=== PATIENT | male | born 1975 | race Two or more races ===

== ENCOUNTER 2020-09-05 11:06 | Emergency (ER) | payer OTHER, SELFPAY ==
[2020-09-05 11:14] VITALS: BP 126/76; PULSE 72; RESP 15; TEMP 36.6; O2SAT 99; BMI 26.6
--- NOTE | 2020-09-05 11:24 | ED.EXTPRO ---
HPI - Extremity Problem General Chief complaint: Extremity Injury, Upper Stated complaint: work related hand injury Time Seen by Provider: 09/05/20 11:15 Source: patient Mode of arrival: ambulatory Limitations: no limitations History of Present Illness HPI Narrative: 45 y/o male presenting with left hand laceration after he scraped it on metal while moving a large metal rack while at work. Bleeding is controlled on arrival. He has full function of all of his fingers. He states he has pain at the laceration site but no radiation of the pain. He is not sure when his last tetanus shot was. He did not clean the wound prior to arrival. MD Complaint: extremity pain Onset (ago): minute(s) Pain Consistency: constant Location: left Severity scale (1-10): 3 Quality: stabbing and aching Radiation: none Relieving factors: nothing Exacerbating factors: palpation Associated symptoms: denies other symptoms Related Data Previous Rx's Medication Instructions Recorded cephalexin [Keflex] 500 mg PO QID 7 Days #28 cap 09/05/20 Allergies Allergy/AdvReac Type Severity Reaction Status Date / Time No Known Allergies Allergy Mild NONE Unverified 07/20/20 15:24 Review of Systems Review of Systems: Constitutional: No Fever, No Chills Eyes: No Eye Pain, No Swelling, No Redness Cardiovascular: No Chest Pain, No SOB Respiratory: No Cough, No Sputum Gastrointestinal: No Nausea, No Vomiting Genitourinary: No Dysuria, No Urinary Frequency, No Hematuria Musculoskeletal: + joint pain, No Myalgias Skin: +Skin Lesions, No rash Neuro: No Weakness, No Numbness, No Dizziness, No Headache Psych: No Anxiety/Panic, No Depression PMFSH Past Medical History Attestation statement: The following information was validated with the patient. Medical History No known health problems No known health problems Social History Social History Advance Directives: No Advance Directives Information Provided: No Physical Exam Vital Signs: Vital Signs: Vital Signs Temp Pulse Resp BP Pulse Ox 09/05/20 11:14 97.8 F 72 15 126/76 99 Body Mass Index 26.6 Appearance: Alert. Oriented X3. No acute distress. HEENT: normal inspection Respiratory: No respiratory distress. Skin: Skin warm and dry. Normal skin color. Normal skin turgor. No rashes. Extremities: dorsal left hand with avulsion 2cm x 2cm, jagged edges, no active bleeding. NV intact. all tendon function is normal. strength normal. Neuro: Oriented X 3. No motor deficit. No sensory deficit. Course Course Course Narrative: wound cleaned extensively. no tendon involvement. full function. wound repaired, see lac note. Procedures Laceration Laceration 1: Site: hand Side (If applicable): left Size (cm): 2.5 Description: flap Depth: simple, single layer Local Anesthetic: lidocaine 2% Amount of anesthesia used (mL): 3 Pre-repair: wound explored, irrigated extensively, deep structures intact and wound margins revised Skin layer closed with: nylon Size (cm): 4-0 Number of sutures: 5 Technique: simple, interrupted MDM - Extremity (Nontraumatic) MDM Narrative Medical decision making narrative: left hand laceration without tendon involvement. full function and NV intact. low suspicion for fracture given mechanism and exam Critical Care Time Critical Care Time Critical Care Time: No Discharge Plan Discharge Clinical Impression: Laceration Patient Disposition: Home, Self-Care Instructions: Laceration (ED) Additional Instructions: Limit use of your left hand. Keep area clean and dry. Do not get wet for the 1st 24 hours. After that you can briefly clean with soap and water and then cover. Use bacitracin or triple antibiotic ointment two times per day. Leave area open to air at night when sleeping. If you have increased pain, swelling, redness or loss of function of your fingers call 911 or come back to the ER for evaluation. Prescriptions: New cephalexin [Keflex] 500 mg capsule 500 mg PO QID 7 Days Qty: 28 RF: 0 Referrals: [facility] [Provider Group] - 2 days Stand Alone Forms: Work/School Release Interventions: ED Discharge Assessment Last Done: 09/05/20 11:56 Discharge Date/Time: 09/05/20 12:02
[2020-09-05] MEDS: Lidocaine HCl 2 % MPF 5 ML VIAL SUBCUT (11:39)
--- NOTE | 2020-09-05 11:48 | PC.NURSE ---
SHANEKA JOYA AT BEDSIDE TO ASSESS, CLEANSE, SUTURE, APPLIED BACITRACIN OINTMENT, TELFA/GAUZE WRAP
== END 2020-09-05 12:02 | disposition home or self-care (01) ==
PROVIDERS: Emergency Provider Emergency Medicine; PCP Internal Medicine
DX: S61.412A Laceration without foreign body of left hand, initial encounter (principal); S60.512A Abrasion of left hand, initial encounter; M79.642 Pain in left hand; W26.9XXA Contact with unspecified sharp object(s), initial encounter; Y93.9 Activity, unspecified; Y92.9 Unspecified place or not applicable; Y99.0 Civilian activity done for income or pay; Z23 Encounter for immunization
CPT/HCPCS: 12001; 90471; 90715; 99283; 99284

== ENCOUNTER 2020-09-18 08:34 | Emergency (ER) | payer OTHER, SELFPAY ==
[2020-09-18 09:11] VITALS: BP 112/74; PULSE 67; RESP 16; TEMP 36.4; O2SAT 98; BMI 26.6
--- NOTE | 2020-09-18 09:31 | ED.WOUNDLAC ---
HPI - Wound/Laceration General Chief Complaint: Wound/Laceration Stated Complaint: suture removal Time Seen by Provider: 09/18/20 09:30 History of Present Illness HPI narrative: Patient is here for suture removal from left hand injury at work 2 weeks ago, his hand was hit by a heavy object at work, he complains that it still hurts to use the hand and there is still some swelling and black and blue in the hand He has no numbness or weakness he has had no redness or discharge from the wound no fever Pain is mild Related Data Previous Rx's Medication Instructions Recorded cephalexin [Keflex] 500 mg PO QID 7 Days #28 cap 09/05/20 Allergies Allergy/AdvReac Type Severity Reaction Status Date / Time No Known Allergies Allergy Mild NONE Unverified 07/20/20 15:24 Review of Systems Review of Systems: No fever no chills no neck pain no numbness no weakness no paresthesias no skin rash Yes all other systems are reviewed and are negative PMFSH Past Medical History Source: nursing notes reviewed Medical History No known health problems No known health problems Social History Social History Advance Directives: No Advance Directives Information Provided: Yes Physical Exam Vital Signs: Vital Signs: Last Vital Signs Temp 97.6 F 09/18/20 09:11 Pulse 67 09/18/20 09:11 Resp 16 09/18/20 09:11 BP 112/74 09/18/20 09:11 Pulse Ox 98 09/18/20 09:11 Body Mass Index 26.6 Patient is A&O x3, comfortable appearing, no acute distress Neck is supple Respiratory no acute distress Extremities full range of motion x4 The left hand has sutures in place on the dorsum of the hand there is mild dorsal swelling but no surrounding erythema no fluctuance no discharge, no significant tenderness, there is some mild ecchymosis, there is full range of motion but there is discomfort when he makes a fist, wrist has full range of motion without tenderness or swelling, all tendon function is normal, neurovascular is intact Course Course Course Narrative: Sutures in left hand were removed without complication As patient has continued pain with use of the hand and some swelling he is advised to follow with [facility] for further evaluation, there is no infection now there is no tendon impairment, no evidence of fracture Discharge Plan Discharge Clinical Impression: Encounter for removal of sutures Patient Disposition: Home, Self-Care Additional Instructions: Stitches were removed, there is no sign of infection now but there is still swelling and pain with use of the hand so follow with [facility] for work related injury for further evaluation Return any time if worse Prescriptions: No Action cephalexin [Keflex] 500 mg capsule 500 mg PO QID 7 Days Qty: 28 RF: 0 Referrals: [facility] [Provider Group] - 2 days (Continuing left hand pain and swelling after work injury 12 days ago) Burak Kaufman MD [Physician] - 2 days (Left hand work injury with continued pain and swelling for 2 weeks) Stand Alone Forms: Work/School Release Interventions: ED Discharge Assessment Last Done: 09/18/20 09:42 Discharge Date/Time: 09/18/20 09:40
== END 2020-09-18 09:40 | disposition home or self-care (01) ==
PROVIDERS: Emergency Provider Emergency Medicine; PCP Internal Medicine
DX: Z48.02 Encounter for removal of sutures (principal); Z79.899 Other long term (current) drug therapy
CPT/HCPCS: 99283

== ENCOUNTER 2021-04-06 07:46 | Outpatient (REF) | payer OTHER, SELFPAY ==
[2021-04-06 08:03] LABS: COVID-19 Test Negative (Negative); IDNOW Serial# 55D5AD1C
== END 2021-04-06 07:47 | disposition home or self-care (01) ==
LOC: HO.LAB 07:46
PROVIDERS: Visit Provider Internal Medicine
DX: Z20.822 Contact with and (suspected) exposure to COVID-19 (principal)
CPT/HCPCS: 36415; 87635; C9803

== ENCOUNTER 2021-11-06 12:08 | Outpatient (REF) | payer OTHER, SELFPAY ==
[2021-11-06 15:47] LABS: Binax Internal Control QC Valid; Binax Lot number: 9864; Binax Now Covid-19 Ag Positive (Negative)
== END 2021-11-06 12:09 | disposition home or self-care (01) ==
LOC: HO.LAB 12:08
PROVIDERS: Visit Provider Internal Medicine
DX: Z20.822 Contact with and (suspected) exposure to COVID-19 (principal)
CPT/HCPCS: 36415

== ENCOUNTER 2024-09-22 17:38 | Emergency (ER) | payer OTHER, SELFPAY ==
--- NOTE | ~2024-09-22 | CT_ITS ---
EXAMINATION: CT HEAD WITHOUT CONTRAST CLINICAL INFORMATION: Head injury at work. Question bleed. COMPARISON: None available. TECHNIQUE: Contiguous axial imaging was performed from the skull base to vertex without intravenous administration of contrast. This CT examination was performed using dose optimization techniques as appropriate, variously including the following: *Automated exposure control *Adjustment of mA and/or kV according to patient size (this includes techniques or standardized protocols for targeted exams where dose is matched to indication/reason for exam; i.e. extremities or head) *Use of iterative reconstruction technique DLP: 1232 mGy-cm FINDINGS: There is no acute intracranial hemorrhage. There is no evidence of acute/subacute cerebral or cerebellar infarction. There is no midline shift. No mass effect. No extra-axial fluid collection. The ventricles are normal in size. The orbits are symmetric and within normal limits. There is scattered ethmoid air cell mucosal thickening. There is apparent deformity of the lateral wall of the left maxillary sinus. The left maxillary sinus is clear. This deformity is likely chronic. There is chronic appearing deformity of the left zygomatic arch. The mastoid air cells are well-aerated. CT/CT head/brain wo IV con IMPRESSION: No acute intracranial hemorrhage. 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 Electronically signed by: Adam Saleem DO 09/22/2024 09:43 PM EST
--- NOTE | ~2024-09-22 | CT_ITS ---
EXAMINATION: CT SOFT TISSUE NECK WITHOUT CONTRAST CLINICAL INFORMATION: Left supraclavicular mass,? Neoplasm COMPARISON: None available. TECHNIQUE: Helical imaging was performed in the axial plane with generation of coronal and sagittal reformatted images. This CT examination was performed using dose optimization techniques as appropriate, variously including the following: *Automated exposure control *Adjustment of mA and/or kV according to patient size (this includes techniques or standardized protocols for targeted exams where dose is matched to indication/reason for exam; i.e. extremities or head) *Use of iterative reconstruction technique DLP: 485.67 mGy-cm FINDINGS: No abnormally enlarged neck lymph node or mass. The nasopharynx, oropharynx, hypopharynx, and laryngeal structures are unremarkable. The parotid, submandibular, and thyroid glands are unremarkable. The visualized orbits are unremarkable. The paranasal sinuses and mastoid air cells are clear. The imaged portions of the brain are unremarkable. No acute osseous abnormality. No lytic or blastic osseous lesions. The imaged lungs are clear. CT/CT soft tissue neck wo IV con IMPRESSION: Normal CT neck soft tissue. Electronically signed by: Xuan Leonard MD 09/22/2024 08:58 PM [facility]
[2024-09-22 17:56] VITALS: BP 138/80; PULSE 76; RESP 19; TEMP 36.6; O2SAT 98; BMI 27.6
--- NOTE | 2024-09-22 17:57 | ED_ITS ---
HPI - General Adult General Chief complaint: Wound/Laceration Stated complaint: head inj work related, lump on left shoulder Time Seen by Provider: 09/22/24 18:36 Source: patient Mode of arrival: ambulatory Limitations: no limitations History of Present Illness ED Provider: DR. Vincent HPI narrative: a 49-year-old male came to the emergency department for 2 different reasons. 1. Sustained a head injury while he was at work, patient was bending down when he stood up he had his head in a metal gate causing superficial laceration to the frontal scalp, no LOC, patient is complaining of slight headache, no blood thinner, no nausea, no vomiting. 2. Patient also noted left supraclavicular soft tissue mass for 1 year noticed that he can not raise his left arm all the way above his head because of the mass. Related Data Previous Rx's ?Medication ?Instructions ?Recorded cephalexin 500 mg capsule (Keflex) 500 mg PO QID 7 days #28 caps 09/05/20 Allergies Allergy/AdvReac Type Severity Reaction Status Date / Time No Known Allergies Allergy Mild NONE Verified 09/22/24 18:00 Review of Systems Review of Systems: all other systems are reviewed and are negative Constitutional: Reports as per HPI and Reports no additional constitutional complaints Eyes: Reports as per HPI and Reports no additional eye complaints Reports system reviewed and no additional complaints, except as documented Cardiovascular: Reports as per HPI and Reports no additional cardiovascular complaints Respiratory: Reports as per HPI and Reports no additional respiratory complaints Gastrointestinal: Reports as per HPI and Reports no additional gastrointestinal complaints Genitourinary: Reports no additional female genitourinary complaints Musculoskeletal: Reports no additional musculoskeletal complaints Skin/Breast: Reports system reviewed and no additional complaints, except as docu Psychiatric: Reports no additional psychiatric complaints Endocrine: Reports no additional endocrine complaints Hematologic/Lymphatic: Reports no additional hematologic/lymphatic complaints Allergic/Immunologic: Reports no additional allergic/immunologic complaints Reports system reviewed and no additional complaints, except as documented and Reports Abnormal speech present [facility] Past Medical History Medical History No known health problems No known health problems Social History Social History Alcohol intake: current Alcohol intake frequency: holidays/special occasions only Smoked in Last 30 Days: No Use of substances other than those prescribed or required for medical reasons: No Advance Directives: No Advance Directives Information Provided: Yes Do you have a plan to hurt others: No Plan Physical Exam ED Vital Signs: Vital Signs - 24 hr 09/22/24 17:56 09/22/24 22:02 Temperature 98 F 97.9 F Pulse Rate 76 69 Respiratory Rate 19 18 Blood Pressure 138/80 112/72 Pulse Oximetry 98 99 Oxygen Delivery Method Room Air Room Air BMI result Body Mass Index 27.6 Vital signs have been reviewed and appear to be correct. Blood pressure elevated. Heart rate normal. Respiratory rate normal. Temperature normal. Oxygen saturation normal. Appearance: Alert. Oriented X3. No acute distress. Head: Normal external exam. Normocephalic. superficial frontal scalp laceration with dry blood, no active bleeding. No Ham signs noted. No raccoon eyes noted Eyes: PERRLA. EOMI. Conjunctiva and sclera normal. Eyelids normal. ENT: TM's Normal. Pharynx normal. Uvula midline. Moist mucous membranes. No trismus noted. No drooling noted. No muffled voice noted. Neck: Normal inspection. Neck supple. FROM. No adenopathy. Thyroid Normal. No meningeal signs. No neck mass noted. CVS: Normal heart rate and rhythm. Heart sound normal. No murmurs noted. Pulses normal throughout. Respiratory: No respiratory distress. Painless inspiration. Breath sounds normal. No wheezes/rales/rhonchi noted. Chest nontender. No accessory muscle usage noted or decreased air movement noted. Abdomen: Soft and nontender. Bowel sounds normal in all 4 quadrants. No distention noted. No organomegaly noted. No visible injury noted. Back: No CVA tenderness. Full range of motion noted. Skin: Skin warm and dry. Normal skin color. Normal skin turgor. No rashes /lesions/lacerations noted. Extremities: No lower extremity edema. Extremities exhibit normal range of motion. Extremities nontender. Neuro: Oriented X 3. Cranial nerve exam: II-XII are grossly intact No motor deficit. No sensory deficit. Reflexes normal. Course Course Course Narrative: This is a rapid medical exam performed by Amalia Thurston NP: Additional HPI, ROS, PE not included below will be deferred to primary provider. Patient is a 49-year-old male presenting to the ED with complaint of head injury sustained at work. States he was leaning down to look at something, when he stood up, he hit his head on a gate. He denies LOC, is not anticoagulated. Went to urgent care but was referred to the ED. Complains of headache. Last Tdap was 3 years ago here he believes. Dried blood over laceration, difficult to determine severity in triage, will need additional evaluation. Reevaluation(s) Reevaluation #1: signed out to Dr. Liriano's to follow-up on CT head, CT soft tissue neck for on growing left supraclavicular soft tissue evaluation. Patient has a normal neuro exam, with GCS of 15. Time: 20:57 Reevaluation #2: I assumed care of of this patient from my colleague, Dr. Vincent at 21:[address] hours[address] Patient had a CT scan of the head to evaluate head trauma which revealed no acute fracture bleed. He has a left supraclavicular mass which is gotten larger over the past year in his restricting the range of motion of his left shoulder. On my evaluation patient's mass is soft and well demarcated and I suspect that may be a lipoma. CT scan of the chest did not reveal any significant abnormalities. I will refer the patient to our on-call surgeon Dr. Raya for evaluation of this mass. Patient was given ibuprofen 400 mg orally for his head pain. Patient states that he can return to work and does not think that he will have any limitations in his job performance. Patient was discharged home with printed and verbal instructions. Time: 22:23 Medications Administered Discontinued Medications Generic Name Dose Route Start Last Admin Trade Name Freq PRN Reason Stop Dose Admin Diphtheria/Tetanus/Acell Pertussis 0.5 ml 09/22/24 19:06 09/22/24 19:25 Diphth,Pertus(Acell),Tet Adult 0.5 Ml Syringe IM 09/22/24 19:07 0.5 ml .ONCE ONE Administration Medical Decision Making Differential Diagnosis Differential Diagnoses: The differential diagnosis associated with the presentation includes ( intracranial bleed, brain concussion, left supraclavicular soft tissue mass) Admission/Observation Consideration of admission/observation: Escalation of care including admission/observation considered Radiology Impression Discussion of test interpretation with radiology: I have reviewed the radiologist's reading. Radiologist Impression: CT head/brain wo IV con IMPRESSION: No acute intracranial hemorrhage. 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 Electronically signed by: Adam Saleem DO 09/22/2024 09:43 PM EST RP Dictated By: Adam Saleem Jr, DO CT soft tissue neck wo IV con IMPRESSION: Normal CT neck soft tissue. Electronically signed by: Xuan Leonard MD 09/22/2024 08:58 PM EST RP Dictated By: Xuan Leonard MD Discharge Plan Discharge Clinical Impression: Closed head injury, Supraclavicular mass Patient Disposition: Home, Self-Care Instructions: Head Injury (ED) Additional Instructions: The CT scan of your head revealed no skull fracture or bleeding in the brain which is reassuring. The CT scan of your chest did not reveal any significant abnormalities which is also reassuring. At this time, I believe that the mass above your collar bone is probably lipoma however I want you to follow-up with our on-call surgeon, Dr. Raya for evaluation. Call his office tomorrow to make an appointment within the next 1-2 weeks. Take ibuprofen 200 mg pills, 2 pills every 6 hours as needed for pain or fever. Take Tylenol (acetaminophen) 500 mg pills, 2 pills every 6 hours as needed for pain or fever. Follow-up with your doctor in 2 days. Please return to the emergency department if your symptoms get worse or if you develop any symptoms that are concerning to you. At this time I believe that you are medically cleared and returned to work with full duty tomorrow. Prescriptions: No Action cephalexin [Keflex] 500 mg capsule 500 mg PO QID 7 Days Qty: 28 0RF Print Language: Faroese
--- NOTE | 2024-09-22 18:48 | PC.NURSE ---
pt to CT at this time. plan of care ongoing.
[2024-09-22] MEDS: Diphth,Pertus(ACell),Tet Adult 0.5 ML SYRINGE IM (19:25)
[2024-09-22 22:02] VITALS: BP 112/72; PULSE 69; RESP 18; TEMP 36.6; O2SAT 99
[2024-09-22 22:30] VITALS: BP 112/72; PULSE 69; RESP 18; TEMP 36.6; O2SAT 99
[2024-09-22] MEDS: Ibuprofen 400 MG TABLET PO (22:36)
== END 2024-09-22 22:37 | disposition home or self-care (01) ==
PROVIDERS: Emergency Provider Emergency Medicine Emergency Medical Services; PCP Internal Medicine
DX: S09.90XA Unspecified injury of head, initial encounter (principal); S01.01XA Laceration without foreign body of scalp, initial encounter; W22.09XA Striking against other stationary object, initial encounter; R22.1 Localized swelling, mass and lump, neck; Y93.9 Activity, unspecified; Y92.59 Other trade areas as the place of occurrence of the external cause; Y99.0 Civilian activity done for income or pay; Z23 Encounter for immunization
CPT/HCPCS: 70450; 70490; 90471; 90715; 99284

== ENCOUNTER 2024-10-08 08:30 | Outpatient (AMB) | payer OTHER, SELFPAY ==
--- NOTE | 2024-10-08 08:36 | MHC.OFFVIS ---
Vital Signs 10/08/24 08:42 Height 5 ft 7 in Weight 181 lb BMI 28.3 Intake Visit Reasons: Supraclavicular mass Intake Note: Patient is seen in office for ER follow up visit, following a left supraclavicular mass. Pt c/o: onset one year, unable to raise left arm above head limited ROM, left supraclavicular mass, discomfort. ED/CT: 09/2024 Special Needs Bus Driver Required: No Accompanied by: Self / Same As Patient Allergies No Known Allergies Allergy (Mild, Verified 10/08/24 08:42) NONE Medication List - Last Reconciled 10/08/24 by Andrey Raya MD No Known Home Meds HPI Comments Details: 49-year-old male patient presenting with a soft tissue mass located in the supraclavicular region on the left side 1st noted several months ago. He feels it started as a small lump but has gradually increased in size. He denies any pain associated with the lesion but does know difficulty raising his arm over his head compared to his right arm. He denies any injury or trauma to this site. He also notes swelling at the sternoclavicular junction in the left side as well again he denies any pain associated with this area as well. He is requesting removal of the soft tissue mass in the left supraclavicular region. 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 [facility] Medical History No known health problems No known health problems Social History Alcohol intake: current Alcohol intake frequency: holidays/special occasions only Review of Systems Const All systems reviewed & are unremarkable except as noted in HPI and below Physical Exam Vital Signs: BMI result Body Mass Index 28.3 Const General: cooperative and no acute distress Nutritional Appearance: well nourished Orientation/consciousness: patient oriented x3 Limitations: no limitations HEENT Head: Yes normocephalic and Yes atraumatic Ears: hearing grossly normal bilaterally Chest Chest/axillae images: 1. Soft tissue mass mobile within the subcutaneous tissue within the hollows of the supraclavicular region on the left side, measuring 6 cm in diameter. 2. Slight swelling noted at the sternoclavicular junction suggestive of arthritic changes. No overlying skin changes appreciated. Resp Effort & Inspection: normal respiratory effort, no audible wheezes, no cough and no respiratory distress Cardio Jugular venous distension: no JVD GI Inspection: Yes normal to inspection Skin Other: Warm, dry, no rash Neuro General: patient oriented x3 Extrem General: Yes no clubbing, cyanosis or edema Assessment & Plan Assessment & Plan (1) Lipoma of anterior chest wall: Code(s): D17.1 - Benign lipomatous neoplasm of skin and subcutaneous tissue of trunk Category: Medical Plan 49-year-old male patient with a soft tissue mass located in the left supraclavicular region. I am uncertain if this is causing the difficulty in raising his arm over his head but would suggest excision of the large lipoma as a short-stay surgery. I reviewed the procedure, risks, and alternatives and he gives his consent for excision of the left supraclavicular lipoma. Coding Level of Care Code New Pt Level 4 (73410) Diagnoses Lipoma of anterior chest wall D17.1
[2024-10-08 08:42] VITALS: BMI 28.3
== END 2024-10-08 08:52 | disposition home or self-care (01) ==
PROVIDERS: PCP Internal Medicine; Visit Provider Surgery
DX: D17.1 Benign lipomatous neoplasm of skin and subcutaneous tissue of trunk (principal)
CPT/HCPCS: 99204

== ENCOUNTER → 2024-10-08 08:30 | Outpatient (BNVA) | payer OTHER, SELFPAY | PROVIDERS: PCP Internal Medicine; Visit Provider Surgery | DX: D17.1 Benign lipomatous neoplasm of skin and subcutaneous tissue of trunk (principal) | CPT/HCPCS: 99202 ==

== ENCOUNTER 2025-03-15 09:49 | Outpatient (AMB) | payer OTHER, SELFPAY ==
--- NOTE | 2025-03-15 10:08 | MHC.PC.OV ---
Vital Signs 03/15/25 10:09 Height 5 ft 7 in Weight 184 lb 4 oz BMI 28.9 BP 100/64 Blood Pressure Location Lt brachial Position Sitting Pulse 69 Pulse Source Pulse Oximeter Pulse Oximetry (%) 96 Oxygen Delivery Method Room Air Intake Visit Reasons: Establish Care Registered Dental Assistant Required: No Accompanied by: Self / Same As Patient Allergies No Known Allergies Allergy (Mild, Verified 03/15/25 10:50) NONE Medication List - Last Reconciled 03/15/25 by Mannie Murillo MD No Known Home Meds Tobacco use date assessed: 03/15/25 Dental Screening Dental Screen Date: 03/15/25 Did you have a dental visit in the last 12 months?: Yes Did you have a dental problem in the last 6 months where you did not have access to dental care?: No Was dental information given to patient?: Patient has dentist HPI Establish Care HPI Details Patient comes in today to reestablish care - he has not been back in 4 to 5 years States that he currently feels okay Has had a left supraclavicular mass x 2 years now and he feels that this has been getting bigger lately He denies any pain over the mass on his left supraclavicular area He denies any headaches or dizziness Denies any chest pains, no SOB No nausea/vomiting, no abdominal pain although he reports experiencing frequent heartburns lately No change in bowel habits noted He denies any acute urinary symptoms Adds that he has been experiencing recurrent pain over the plantar aspect of his right foot lately and has noticed that the pain increases with walking He denies any recent injury or trauma to his right foot and has not noticed any swelling of his foot recently [facility] Medical History (Updated 03/15/25 @ 11:21 by Mannie Murillo MD) Overweight (BMI 25.0-29.9) Smoker No known health problems Surgical History (Updated 03/15/25 @ 10:55 by Mannie Murillo MD) History of excision of mass History of right inguinal hernia repair Family History (Updated 03/15/25 @ 10:13 by REYNA Paniagua) Other Diabetes Social History Housing: House Alcohol intake: current Alcohol intake frequency: holidays/special occasions only Patient Tobacco Use Status: Current everyday Tobacco user e-Cigarette/Vaping Use: Never Used service: No Current occupational status: unemployed Current occupational exposures/hazards: No Cognitive needs: No Hearing needs: No Vision needs: No Questionnaire PHQ-9 Over the last 2 weeks, how often have you been bothered by any of the following problems? 1. Little interest or pleasure in doing things: not at all 2. Feeling down, depressed, or hopeless: not at all 3. Trouble falling or staying asleep, or sleeping too much: not at all 4. Feeling tired or having little energy: not at all 5. Poor appetite or overeating: not at all 6. Feeling bad about yourself - or that you are a failure or have let yourself or your family down: not at all 7. Trouble concentrating on things, such as reading the newspaper or watching television: not at all 8. Moving or speaking so slowly that other people could have noticed. Or the opposite - being so fidgety or restless that you have been moving around a lot more than usual: not at all 9. Thoughts that you would be better off or of hurting yourself in some way: not at all Total score: 0 Depression Screening Interpretation: Negative Depression Screening Done: Yes 48780 - PHQ-9 Billing: Yes Source: Developed by Drs. Patrice Ho, Melonie Pearl, Carlin Villalobos and colleagues, with an educational alicia from [employer]. Thrive Questionnaire Date Thrive assessed: 03/15/25 I am a: Patient What is your living situation today?: I have a steady place to live Within the past 12 months, did the food you bought not last and you didn't have the money to get more?: Never true Within the past 12 months, did you worry whether your food would run out before you got money to buy more?: Never true Do you have trouble paying for medicines?: No Do you have trouble getting transportation to medical appointments?: No Do you have trouble paying your heating and electricity bill?: I choose not to answer this question Do you have trouble taking care of your child, family member or friend?: No Do you have trouble with day-to-day activities such as bathing, preparing meals, shopping, managing finances, etc.?: No Are you currently unemployed and looking for a job?: Yes Are you interested in more education?: Yes Please select the resources that you would like help with: Housing/Retirement Currently or been in a relationship where the following occur: No concerns reported THRIVE Score: 0 AUDIT C Alcohol Use Questionnaire (AUDIT-C) 1. How often do you have a drink containing alcohol?: Monthly or less 2. How many drinks containing alcohol do you have on a typical day when you are drinking?: 1 or 2 3. How often do you have six or more drinks on one occasion?: Never Total Score: 1 Score Reviewed/Action Taken: Yes LAURA-7 AMB Questionnaire LAURA-7 Date LAURA - 7 assessed: 03/15/25 Feeling nervous, anxious, or on edge: 0 = Not at all Not being able to stop or control worryin = Not at all Worrying too much about different things: 0 = Not at all Trouble relaxin = Not at all Being so restless that it is hard to sit still: 0 = Not at all Becoming easily annoyed or irritable: 0 = Not at all Feeling afraid as if something awful might happen: 0 = Not at all Total LAURA-7 score (0-4 normal; 5-9 mild; 10-14 moderate; 15-21 severe): 0 Source: Developed by Drs. Patrice Ho, Melonie Pearl, Carlin Villalobos and colleagues, with an educational alicia from [employer]. Review of Systems Const Denies chills, Denies fatigue, Denies fever(s), Denies headache(s), Denies malaise and Denies weakness Eyes Denies blurry vision, Denies change in vision, Denies irritation and Denies itchy eyes ENT Details: (+) large palpable non-tender mass/cyst on the left supraclavicular area Denies dysphagia, Denies dizziness, Denies otalgia, Denies headache(s), Denies nasal congestion, Denies neck pain, Denies odynophagia and Denies sore throat Card Denies rapid heart rate, Denies irregular heart rhythm, Denies palpitations and Denies dyspnea Resp Denies chest congestion, Denies cough, Denies dyspnea and Denies wheezing GI Denies abdominal pain, Denies bloating, Denies constipation, Denies dysphagia, Reports heartburn (recurrent lately), Denies diarrhea, Denies nausea, Denies odynophagia and Denies vomiting Denies hematuria, Denies difficulty urinating, Denies dysuria, Denies urinary frequency and Denies urinary urgency Musc Details: (+) recurrent right foot pain - over the plantar aspect that increases with walking Denies back pain, Denies arthralgias, Denies joint swelling, Denies muscle weakness and Denies neck pain Skin/Breast Denies change in pigmentation, Denies lesions, Denies rash and Denies unusual bruising Neuro Denies dizziness, Denies headache(s), Denies paresthesias and Denies weakness Endo Denies fatigue and Denies palpitations Aller/Immun Denies itchy eyes and Denies wheezing Physical exam (Primary Care) Vital Signs: Last Vital Signs Pulse 69 03/15/25 10:09 BP 100/64 03/15/25 10:09 Pulse Ox 96 03/15/25 10:09 Oxygen Delivery Method Room Air 03/15/25 10:09 BMI result Body Mass Index 28.9 Tobacco/Smoking Status: Tobacco use Status Tobacco use date assessed 03/15/25 03/15/25 10:12 Patient Tobacco Use Status Current everyday Tobacco 03/15/25 10:16 e-Cigarette/Vaping Use Never Used 03/15/25 10:16 PHQ-9: PHQ-9 Score PHQ-9: Total score 0 03/15/25 10:12 Depression Screening Interpretation: Negative Thrive Assessment: Date of Thrive Assessment Date Thrive assessed 03/15/25 03/15/25 10:12 Currently or been in a relationship where the following occur: No concerns reported Const General: no acute distress, alert and awake Orientation/consciousness: patient oriented x3 HENMT Head: Yes normocephalic and Yes atraumatic Ears: external ears normal, TM's normal bilaterally and EAC's normal General nose exam: No nasal discharge present Face and sinus: Yes normal facial exam and Yes sinuses nontender Teeth and gingiva: dentition normal Throat: Yes posterior oropharynx normal and Yes tonsils normal (no TP congestion) Eyes Eyelids: Yes eyelids normal Conjunctivae: conjunctivae normal Pupils: Equal, round and reactive pupils present EOM: EOMs intact bilaterally Neck Other: (+) large, palpable, non-tender mass/cyst over the left supraclavicular area Neck: Yes supple and No lymphadenopathy Thyroid: Thyroid normal Resp Auscultation: clear to auscultation bilaterally, no rales and no wheezes Cardio Rate: regular rate Rhythm: regular rhythm Heart sounds: no murmurs GI Palpation (GI): Soft to palpation, nontender and No hepatosplenomegaly present Auscultation: normal bowel sounds General: Yes no CVA tenderness Back/Spine/Pelvis Back: no CVA tenderness Thoracic/Lumbar Spine: thoracic and lumbar spine normal to inspection Skin Lesions: no lesions Rashes: no rashes Neuro General: patient oriented x3, moves all extremities, no focal motor deficits and CN's II-XI intact bilaterally Cranial nerves: Yes Equal, round and reactive pupils present Cognition (Neuro): normal cognition Gait exam (Neuro): Normal gait present Extrem General: Yes no clubbing, cyanosis or edema Coding Level of Care Code New Pt Prev Care 40-64y(39555) Diagnoses Annual physical exam Z00.00 Subcutaneous mass of supraclavicular area R22.2 Right foot pain M79.671 Heartburn R12 Smoker F17.200 Overweight (BMI 25.0-29.9) E66.3 Colon cancer screening Z12.11 Additional Codes PHQ-9 - 01418 - PHQ-9 Billing: Yes ([id number]) Assessment & Plan Assessment & Plan (1) Annual physical exam: Code(s): Z00.00 - Encounter for general adult medical examination without abnormal findings Category: Medical Plan: Check labs Patient is also now due to start screening colonoscopy and will be referred for this (2) Subcutaneous mass of supraclavicular area: Code(s): R22.2 - Localized swelling, mass and lump, trunk Category: Medical Plan: Will send him for sof tissue US of the left supraclavicular mass LEE for further evaluation - Virchow's node? Will also send him for serologies for further evaluation of this (3) Right foot pain: Code(s): M79.671 - Pain in right foot Category: Medical Plan: Will send him for x-rays of the right foot for further evaluation Will also refer him to podiatry for further evaluation and management of his foot symptoms (4) Heartburn: Code(s): R12 - Heartburn Category: Medical Plan: Discussed dietary restrictions He is advised that he can try taking soem Famotidine 20 mg BID PRN for now - Rx sent (5) Smoker: Code(s): F17.200 - Nicotine dependence, unspecified, uncomplicated Category: Social Hx Plan: Patient is counseled on complete smoking cessation (6) Overweight (BMI 25.0-29.9): Code(s): E66.3 - Overweight Category: Medical Plan: Reinforced diet/exercise as tolerated/lose weight (7) Colon cancer screening: Code(s): Z12.11 - Encounter for screening for malignant neoplasm of colon Category: Medical Plan: Will refer him to GI for screening colonoscopy Plan Follow up in 4 months Orders: Orders Complete Blood Count Auto Diff Today D64.9 - Anemia, unspecified, Z00.00 - Encounter for general adult medical examination without abnormal findings Lipid Panel Today E78.00 - Pure hypercholesterolemia, unspecified, Z00.00 - Encounter for general adult medical examination without abnormal findings Hemoglobin A1c Today R73.9 - Hyperglycemia, unspecified, Z00.00 - Encounter for general adult medical examination without abnormal findings Prostate Specific Antigen Scr Today Z00.00 - Encounter for general adult medical examination without abnormal findings T Spot TB Today R22.2 - Localized swelling, mass and lump, trunk, Z11.1 - Encounter for screening for respiratory tuberculosis Syphilis Screen Today R22.2 - Localized swelling, mass and lump, trunk XR foot RT min 3V Today M79.671 - Pain in right foot US soft tiss head and/or neck Today R22.2 - Localized swelling, mass and lump, trunk Comprehensive [place]. Panel Fast Today E78.00 - Pure hypercholesterolemia, unspecified, Z00.00 - Encounter for general adult medical examination without abnormal findings TSH reflex Free T4 Today E78.00 - Pure hypercholesterolemia, unspecified, Z00.00 - Encounter for general adult medical examination without abnormal findings UA CC w/rflx Micro + Cult Today R30.0 - Dysuria, Z00.00 - Encounter for general adult medical examination without abnormal findings Vitamin D 25-OH Total Today E55.9 - Vitamin D deficiency, unspecified, Z00.00 - Encounter for general adult medical examination without abnormal findings Referrals Podiatry Referral M79.671 - Pain in right foot Gastroenterology Referral Z12.11 - Encounter for screening for malignant neoplasm of colon Medications: New famotidine 20 mg PO BID PRN 60 tabs 3RF heartburns
[2025-03-15 10:09] VITALS: BP 100/64; PULSE 69; O2SAT 96; BMI 28.9
--- OUTSIDE RECORDS SUMMARY | 2025-03-15 10:37 | XMS_ITS | Clinical Summary ---
Author Organization [employer] Address [address] [facility] [address] [place] [address] Care Team Providers Care Commercial Collections Driver Name Role Phone Unavailable Primary Care Provider Unavailabl e Allergies No known active allergies Medications Sodium Fluoride 1.1 % creamIndication s:Dental caries [place] teeth for 2 minutes, morning and night. Spit, do not rinse. Do not eat or drink anything for 30 minutes following use. 112 g 3 4 Active Active Problems No known active problems Social History Tobacco Use Types Packs/Day Years Used Date Smoking Tobacco: Some Days Cigarettes Passive Smoke Exposure: Current Smokeless Tobacco: Never Tobacco Cessation:Ready to Q uit: Not Asked; Counseling Given: Not Answered Alcohol Use Standard Drinks/Week Comments Defer 0 (1 standard drink = 0.6 oz pur e alcohol) Sex and Gender Information Value Date Recorded Sex Assigned at Male 09/06/2024 12:08 PM EST Legal Sex Male 12:04 PM EST Gender Identity Male 09/06/2024 12:08 PM EST Sexual Orientation Choose not to disclose 2023 12:08 PM EST Last Filed Vital Signs Vital Sign Reading Time Taken Comments Blood Pressure 130/68 10/11/2024 10:16 AM EST Pulse 60 09/13/2024 10:12 AM EST Temperature - - Respiratory Rate - - Oxygen Saturation - - Inhaled Oxygen Concentration - - Weight - - Height - - Body Mass Index - - Plan of Treatment Upcoming Encounters Date Type Department Care Team (Late st Contact Info) Description 04/05/2025 10:00 AM EDT Office Visit [facility] [address] [place] [address] Josh Maddox DMD [address] [place] [address] Health Maintenance Due Date Last Done Comments CT Colonography 1975 Colonoscopy 1975 Colorectal Cancer Screening 1975 Depression Screening 1975 FIT DNA/Cologuard 1975 FIT 1975 FOBT 1975 HIV Screening 1975 Lipid Panel 1975 SDOH Screening 1975 Sigmoidoscopy 1975 Alcohol/Substance Use Screening 1987 Family Planning (PISQ) 1990 Hepatitis C Screening 1993 Hepatitis B Vaccines (1 of 3 - 19+ 3-dose series) 1994 Pneumococcal Vaccine: Pediatrics (0 to 5 Years) and At-Risk Patients (6 to 49) Years) (1 of 2 - PCV) 1994 COVID-19 Vaccine (2023-2 5 season) 2024 Influenza Vaccine (#1) 2024 Dental Oral Exam 03/14/2025 09/13/2024 Dental Prophylaxis 03/14/2025 09/13/2024 Zoster Vaccines (1 of 2) 2025 Dental X-Ray: Bitewings 09/14/2025 09/13/2024 Tobacco Screening 10/11/2025 10/11/2024 Dental X-Ray: Full Mouth 09/14/2027 09/13/2024 DTaP/Tdap/Td Vaccines (3 - T d or Tdap) 09/22/2034 09/22/2024, 09/05/2020, 02/18/2015 RSV Patients and Patients Aged 60 years or older (1 - 1-dose 75+ series) 2050 HIB Vaccines Aged Out No longer eligi ble based on patient's age to complete this topic HPV Vaccines Aged Out No longer eligi ble based on patient's age to complete this topic Hepatitis A Vaccines Aged Out No long er eligible based on patient's age to complete this topic IPV Vaccines Aged Out No longer eligi ble based on patient's age to complete this topic Meningococcal Vaccine Aged Out No mechelle gerson eligible based on patient's age to complete this topic RSV under 20 months Aged Out No longe r eligible based on patient's age to complete this topic Rotavirus Vaccines Aged Out No longer eligible based on patient's age to complete this topic Procedures Procedure Name Priority Date/Time Associated Diagnosis Comments PROPHYLAXIS - ADULT Routine 09/13/2024 1 0:00 AM EST Necrosis of dental pulp Dental caries INTRAORAL - COMPLETE SERIES OF RADIOGRAPHIC IMAGES Routine 09/13/2024 10:00 AM EST Necrosis of dental pulp Dental caries COMPREHENSIVE ORAL EVALUATION - NEW OR ESTABLISHED PATIENT Routine 09/13/2024 10:00 AM EST Necrosis of dental pulp Dental caries from Last 3 Months or Most Recently Relevant to Health Maintenance Insurance [facility] MEDICAID STAND ADULT
--- OUTSIDE RECORDS SUMMARY | 2025-03-15 10:37 | XMS_ITS | Clinical Summary ---
Author Organization [employer] [facility] ity Address [address] [place] [address] Care Team Providers Care Dirt Supervisor Name Role Phone Unavailable Primary Care Provider Unavailabl e Social History Tobacco Use Types Packs/Day Years Used Date Smoking Tobacco: Never Assessed Sex and Gender Information Value Date Recorded Sex Assigned at Not on file Legal Sex Male 10:45 PM EST Gender Identity Not on file Sexual Orientation Not on file Plan of Treatment Health Maintenance Due Date Last Done Comments Hepatitis B Vaccines (1 of 3 - 19+ 3-dose series) 1994 Cholesterol Screening (Lipid Panel) 10/06/2022 Colorectal Cancer Screening: Colonoscopy 10/06/2022 Depression Screening 10/06/2022 HIV Screening 10/06/2022 Hepatitis C Screening 10/06/2022 Social Influencers of Health Screening 10/06/2022 COVID-19 Vaccine ( - 2023-2 5 season) 2024 DTaP,Tdap,and Td Vaccines (2 - Td or Tdap) 02/18/2025 02/18/2015 Influenza Vaccine (Season Ended) 2025 HIB Vaccines Aged Out No longer eligi [...] on patient's age to complete this topic MMR Vaccines Aged Out No longer eligi ble based on patient's age to complete this topic Meningococcal ACWY Vaccine Aged Out N o longer eligible based on patient's age to complete this topic Meningococcal B Vaccine Aged Out No l onger eligible based on patient's age to complete this topic Pneumococcal Vaccine: Pediat rics (0 to 5 Years) and At-Risk Patients (6 to 64 Years) Aged Out No longer eligi ble based on patient's age to complete this topic RSV Immunization Patients Un pauly 20 months Aged Out No longer eligible b ased on patient's age to complete this topic Varicella Vaccines Aged Out No longer eligible based on patient's age to complete this topic
== END 2025-03-15 11:06 | disposition home or self-care (01) ==
LOC: HO.HMCH 09:49
PROVIDERS: PCP Internal Medicine; Visit Provider Internal Medicine
DX: Z00.00 Encounter for general adult medical examination without abnormal findings (principal); R22.2 Localized swelling, mass and lump, trunk; M79.671 Pain in right foot; R12 Heartburn; F17.200 Nicotine dependence, unspecified, uncomplicated; E66.3 Overweight; Z12.11 Encounter for screening for malignant neoplasm of colon

== ENCOUNTER → 2025-03-15 09:49 | Outpatient (BNVA) | payer OTHER, SELFPAY | PROVIDERS: PCP Internal Medicine; Visit Provider Internal Medicine | DX: Z00.01 Encounter for general adult medical examination with abnormal findings (principal); R22.2 Localized swelling, mass and lump, trunk; M79.671 Pain in right foot; R12 Heartburn; E66.3 Overweight; Z68.28 Body mass index [BMI] 28.0-28.9, adult; F17.200 Nicotine dependence, unspecified, uncomplicated | CPT/HCPCS: 96127; 99386 ==

== ENCOUNTER 2025-03-16 10:16 | Outpatient (REF) | payer OTHER, SELFPAY ==
[2025-03-16 10:36] LABS: MANUAL DIFF FLAG NO
[2025-03-16 11:02] LABS: Appearance Urine Clear; Color Urine Yellow; Glucose Urine UA Negative (Negative); Leukocyte Esterase Urine Negative (Negative); Nitrite Urine Negative (Negative); Specific Gravity - Urine 1.025 (1.005-1.025); Urine Blood Negative (Negative); Urine Ketones Trace mg/dL (Negative); Urine Protein Negative (Neg-Trace)
[2025-03-16 11:15] LABS: Basophils Percent Auto 0.4 % (0-2); Eosinophils Absolute Auto 0.2 X10*3/uL (0.0-0.4); Eosinophils Percent Auto 2.4 % (0-4); Hemoglobin 15.7 g/dl (14.0-18.0); Imm Gran Abs Auto 0.02 X10*3/uL (0.00-0.03); Imm Gran Pct Auto 0.3 % (0.0-0.4); Lymphocytes Absolute Auto 2.3 X10*3/uL (1.2-4.9); Mean Corpuscular HGB Conc 34.1 g/dl (31.0-36.0); Mean Corpuscular Volume 90.7 fL (80.0-98.0); Mean Platelet Volume 10.8 fL (9.4-12.4); Monocytes Absolute Auto 0.5 X10*3/uL (0.1-1.2); Monocytes Percent Auto 6.3 % (2-11); Neutrophils Absolute Auto 4.2 x10*3/uL (2.0-8.3); Neutrophils Percent Auto 58.6 % (45-73); Platelet Count 234 X10*3/uL (160-400); Red Blood Count 5.07 X10*6/uL (4.60-5.80); Red Cell Distribution Width 12.5 % (11.0-16.0); White Blood Count 7.2 X10*3/uL (4.8-10.8)
--- OUTSIDE RECORDS SUMMARY | 2025-03-16 11:17 | XMS_ITS | Clinical Summary ---
Author Organization [employer] Address [address] [facility] [address] [place] [address] Care Team Providers Care Security Inspector Name Role Phone Unavailable Primary Care Provider Unavailabl e Allergies No known active allergies Medications Sodium Fluoride 1.1 % creamIndication s:Dental caries [place] teeth for 2 minutes, morning and night. [...] Description 04/05/2025 10:00 AM EDT Office Visit [facility] [address] [place] [address] Josh Maddox DMD [address] [place] [address] Health Maintenance Due Date Last Done Comments [...] Most Recently Relevant to Health Maintenance Insurance [facility] MEDICAID STAND ADULT
--- OUTSIDE RECORDS SUMMARY | 2025-03-16 11:17 | XMS_ITS | Clinical Summary ---
Author Organization [employer] [facility] ity Address [address] [place] [address] Care Team Providers Care Supervisor [employer] Name Role Phone Unavailable Primary Care Provider [...]
[2025-03-16 11:23] LABS: Estimated Average Glucose 103 mg/dL; Hemoglobin A1C 136.8492 umol/L; Hemoglobin A1c % 5.2 % (<6.0); Total Hemoglobin (HGBA1C) 4062.3492 umol/L
[2025-03-16 12:01] LABS: Alanine Aminotransferase 18 U/L (0-40); Albumin Level 4.3 g/dL (3.5-5.0); Alkaline Phosphatase 61 U/L (39-117); Anion Gap 12 (12-20); Aspartate Amino Transferase 18 U/L (5-37); Bilirubin Total 0.7 mg/dL (0.0-1.0); Blood Urea Nitrogen 12 mg/dL (9-16); Calcium 8.8 mg/dL (8.4-10.2); Carbon Dioxide 24 mmol/L (22-29); Chloride 108 mmol/L (96-108); Cholesterol 145 mg/dL (<200); Estimated Glomerular Filt Rate > 60; Glucose Fasting 98 mg/dL (60-99); HDL Cholesterol 26 mg/dL (>40); LDL Cholesterol Calculated 81 mg/dL (<100); Potassium 3.9 mmol/L (3.3-5.1); Sodium 140 mmol/L (135-145); Total Protein 6.9 g/dL (6.5-8.0); Triglycerides 190 mg/dL (<150)
[2025-03-16 12:02] LABS: Prostate Specific Antigen Scr 0.91 ng/mL (<0.05-4.0); Syphilis Screen Nonreactive (Nonreactive)
[2025-03-16 12:03] LABS: TSH reflex Free T4 1.94 uIU/mL (0.32-4.0); Vitamin D 25-OH Total 11.1 ng/mL (>30)
[2025-03-21 00:49] LABS: TS Negative Control Passed; TS Panel A 6; TS Panel B 6; TS Positive Control Passed; TSpotTB Borderline (Negative)
== END 2025-03-16 10:17 | disposition home or self-care (01) ==
LOC: HO.LAB 10:16
PROVIDERS: PCP Internal Medicine; Visit Provider Internal Medicine
DX: Z00.00 Encounter for general adult medical examination without abnormal findings (principal); D64.9 Anemia, unspecified; Z11.1 Encounter for screening for respiratory tuberculosis; R22.2 Localized swelling, mass and lump, trunk; E78.00 Pure hypercholesterolemia, unspecified; E55.9 Vitamin D deficiency, unspecified; R73.9 Hyperglycemia, unspecified; R30.0 Dysuria
CPT/HCPCS: 36415; 80053; 80061; 81003; 82306; 83036; 84153; 84443; 85025; 86481; 86780

== ENCOUNTER 2025-05-04 15:28 | Outpatient (REF) | payer OTHER, SELFPAY ==
--- NOTE | ~2025-05-04 | US_ITS ---
CLINICAL HISTORY: R22.2 - Localized swelling, mass and lump, trunk US neck nonvascular Comparison: None Findings: Sonographic evaluation in the area of clinical concern supraclavicular region demonstrates a pliable circumscribed isoechoic lesion in horizontal orientation measuring 6.0 x 5.7 x 1.8 cm fairly superficial within the subcutaneous tissues most consistent with a lipoma. Impression: Findings most consistent with a lipoma subcutaneous soft tissues left supraclavicular region. Contrast-enhanced MRI would be confirmatory. This document has been electronically signed by: Adam Montemayor MD on 05/05/2025 16:40:33
--- OUTSIDE RECORDS SUMMARY | 2025-05-04 15:41 | XMS_ITS | Clinical Summary ---
Author Organization [employer] Address [address] [facility] [address] [place] [address] Care Team Providers Care Lumber Handler Name Role Phone Unavailable Primary Care Provider Unavailabl e Allergies No known active allergies Medications Sodium Fluoride 1.1 % creamIndication s:Dental caries [place] teeth for 2 minutes, morning and night. [...] Mass Index - - Plan of Treatment Health Maintenance Due Date Last Done Comments CT Colonography 1975 Colonoscopy 1975 Colorectal Cancer Screening 1975 Depression Screening 1975 FIT DNA/Cologuard 1975 FIT 1975 FOBT 1975 HIV Screening 1975 Lipid Panel 1975 SDOH Screening 1975 Sigmoidoscopy 1975 Disability Screening 1975 Alcohol/Substance Use Screening 1987 Family Planning (PISQ) 1990 Hepatitis C Screening 1993 Hepatitis B Vaccines (1 of 3 - 19+ 3-dose series) 1994 Pneumococcal Vaccine: Pediatrics (0 to 5 Years) and At-Risk Patients (6 to 49) Years (1 of 2 - PCV) 1994 COVID-19 Vaccine ( - 2023-2 5 season) 2024 Dental Oral Exam 03/14/2025 09/13/2024 Dental Prophylaxis 03/14/2025 09/13/2024 Zoster Vaccines (1 of 2) 2025 Influenza Vaccine (Season Ended) 2025 Dental X-Ray: Bitewings 09/14/2025 09/13/2024 Tobacco [...] Most Recently Relevant to Health Maintenance Insurance [facility] MEDICAID STAND ADULT
--- OUTSIDE RECORDS SUMMARY | 2025-05-04 15:41 | XMS_ITS | Clinical Summary ---
Author Organization [address] [place] [address] Address [address] [place] [address] Phone Care Team Providers Care Blue Leather Sorter Name Role Phone Mannie Murillo MD Primary Care Provider Social History Tobacco Use Types Packs/Day Years [...] on patient's age to complete this topic Insurance MEDICAID - [place] Care Teams Blue Leather Sorter Relationship Specialty Start Date End Date Mannie Murillo MD [address] [place] [address] [place] [address] PCP - General Internal Medicine 03/17/25
== END 2025-05-04 15:29 | disposition home or self-care (01) ==
LOC: HO.HMGCX 15:28
PROVIDERS: PCP Internal Medicine; Visit Provider Internal Medicine
DX: R22.2 Localized swelling, mass and lump, trunk (principal)
CPT/HCPCS: 76536

== ENCOUNTER → 2025-05-04 15:34 | Outpatient (BNV) | payer OTHER, SELFPAY | PROVIDERS: PCP Internal Medicine; Visit Provider Radiology Diagnostic Radiology | DX: R22.2 Localized swelling, mass and lump, trunk (principal) | CPT/HCPCS: 76536 ==

== ENCOUNTER 2025-06-10 10:40 | Emergency (ER) | payer OTHER, SELFPAY ==
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
[2025-06-10 11:09] VITALS: BP 130/56; PULSE 62; RESP 18; TEMP 36.3; O2SAT 98; BMI 29.6
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
[2025-06-10 12:29] VITALS: BP 130/56; PULSE 62; RESP 18; TEMP 36.3; O2SAT 98
--- OUTSIDE RECORDS SUMMARY | 2025-06-10 12:52 | XMS_ITS | Clinical Summary ---
Author Organization [address] [place] [address] Address [address] [place] [address] Phone Care Team Providers Care Fleet Administrator Name Role Phone Mannie Murillo MD Primary [...] Panel) 10/06/2022 Colorectal Cancer Screening: Colonoscopy 10/06/2022 HIV Screening 10/06/2022 Hepatitis C Screening 10/06/2022 Social Influencers of Health Screening 10/06/2022 COVID-19 Vaccine (1 - 2023-2 5 season) 2024 Depression Screening 11/03/2024 DTaP,Tdap,and Td Vaccines (2 - Td or Tdap) 02/18/2025 02/18/2015 Influenza Vaccine (#1) 2025 HIB Vaccines Aged Out No longer [...] 5 Years) and At-Risk Patients (6 to 49 Years) Aged Out No longer eligi ble based on patient's age to complete this topic RSV Immunization Patients Un pauly 20 months Aged Out No longer eligible b ased on patient's age to complete this topic Varicella Vaccines Aged Out No longer eligible based on patient's age to complete this topic Insurance MEDICAID - [place] Care Teams Fleet Administrator Relationship Specialty Start Date End Date Mannie Murillo MD [address] [place] [address] [place] [address] PCP - General Internal Medicine 03/17/25
--- OUTSIDE RECORDS SUMMARY | 2025-06-10 12:52 | XMS_ITS | Clinical Summary ---
Author Organization [employer] Address [address] [facility] [address] [place] [address] Care Team Providers Care Intermission Coordinator Name Role Phone Unavailable Primary Care Provider Unavailabl e Allergies No known active allergies Medications Sodium Fluoride 1.1 % creamIndication s:Dental caries [place] teeth for 2 minutes, morning and night. [...] - 19+ 3-dose series) 1994 Pneumococcal Vaccine: 50+ Years (1 of 2 - PCV) 1994 COVID-19 Vaccine ( - 2023-2 5 season) 2024 Dental Oral Exam 03/14/2025 09/13/2024 Dental Prophylaxis 03/14/2025 09/13/2024 Zoster Vaccines (1 of 2) 2025 Influenza Vaccine (#1) 2025 Dental X-Ray: Bitewings 09/14/2025 09/13/2024 Tobacco [...] Most Recently Relevant to Health Maintenance Insurance [facility]AL-[facility] MEDICAID STAND ADULT
== END 2025-06-10 13:03 | disposition home or self-care (01) ==
LOC: HO.ED 12:50
PROVIDERS: Emergency Provider Emergency Medicine; PCP Internal Medicine
DX: S13.4XXA Sprain of ligaments of cervical spine, initial encounter (principal); V43.52XA Car driver injured in collision with other type car in traffic accident, initial encounter; Y93.9 Activity, unspecified; Y92.9 Unspecified place or not applicable; Y99.9 Unspecified external cause status; M54.2 Cervicalgia; M54.50 Low back pain, unspecified
CPT/HCPCS: 72100; 72125; 99282; 99284

== ENCOUNTER → 2025-06-10 11:14 | Outpatient (BNV) | payer OTHER, SELFPAY | PROVIDERS: Emergency Provider Emergency Medicine; PCP Internal Medicine; Visit Provider Radiology Diagnostic Radiology | DX: M54.2 Cervicalgia (principal); M51.370 Other intervertebral disc degeneration, lumbosacral region with discogenic back pain only | CPT/HCPCS: 72100; 72125 ==

== ENCOUNTER 2025-08-09 12:53 | Outpatient (AMB) | payer OTHER, SELFPAY ==
--- NOTE | 2025-08-09 12:59 | MHC.OFFVIS ---
Vital Signs 08/09/25 13:02 Height 5 ft 6 in Weight 188 lb BMI 30.3 BP 134/73 Blood Pressure Location Rt brachial Position Sitting Pulse 75 Intake Visit Reasons: re-discuss surgery, lipoma anterior chest wall Intake Note: Patient is seen in office to rediscuss surgery, excision of lipoma of chest wall. Pt c/o: first noticed in 2021. Growth has been enlarging, bothersome when driving. L.OV:10/08/24 Human Resources Department Supervisor Required: No Accompanied by: Self / Same As Patient Allergies No Known Allergies Allergy (Mild, Verified 08/09/25 13:05) NONE Medication List - Last Reconciled 08/09/25 by Andrey Raya MD cholecalciferol (vitamin D3) 50 mcg PO DAILY 90 days cyclobenzaprine 10 mg PO TID PRN famotidine 20 mg PO BID PRN ibuprofen 600 mg PO Q6H PRN lidocaine 5% 1 patch topical DAILY HPI Comments Details: 50-year-old male patient returning for re-evaluation of a soft tissue mass located in the left supraclavicular region. This has been present for several years and has gradually increased in size. He reports some pain when trying to sleep on the left side which seems to be worsening with time. He was initially evaluated last year and feels that his symptoms have worsened since then. He does note difficulty raising his arm over his head compared to his right arm with the pain located at the medial clavicle head at the sternum. He also notes swelling at the sternoclavicular junction in the left side as well again he denies any pain associated with this area as well. He is requesting removal of the soft tissue mass in the left supraclavicular region. [facility] Medical History Overweight (BMI 25.0-29.9) Smoker No known health problems Surgical History History of excision of mass History of right inguinal hernia repair Family History Other Diabetes Social History Housing: House Alcohol intake: current Alcohol intake frequency: holidays/special occasions only Patient Tobacco Use Status: Current everyday Tobacco user Cigarettes Per Day: 4 e-Cigarette/Vaping Use: Never Used service: No Current occupational status: unemployed Current occupational exposures/hazards: No Cognitive needs: No Hearing needs: No Vision needs: No Review of Systems Const All systems reviewed & are unremarkable except as noted in HPI and below Physical Exam Vital Signs: Last Vital Signs Pulse 75 08/09/25 13:02 BP 134/73 08/09/25 13:02 BMI result Body Mass Index 30.3 Const General: cooperative and no acute distress Nutritional Appearance: well nourished Orientation/consciousness: patient oriented x3 Limitations: no limitations HEENT Head: Yes normocephalic and Yes atraumatic Ears: hearing grossly normal bilaterally Chest Chest/axillae images:  1. 8 cm round soft tissue mass consistent with a lipoma left supraclavicular region Resp Effort & Inspection: normal respiratory effort, no audible wheezes, no cough and no respiratory distress Cardio Jugular venous distension: no JVD GI Inspection: Yes normal to inspection Skin Other: Warm, dry, no rash Neuro General: patient oriented x3 Extrem General: Yes no clubbing, cyanosis or edema Assessment & Plan Assessment & Plan (1) Lipoma of anterior chest wall: Code(s): D17.1 - Benign lipomatous neoplasm of skin and subcutaneous tissue of trunk Category: Medical Plan 50-year-old male patient with a soft tissue mass located in the left supraclavicular region. This seems to have increased in size over the past year and is certainly causing more symptoms. We discussed excision of this lipoma as a short-stay surgery including the risks, alternatives and benefits. He consents to the excision of left supraclavicular lipoma. Coding Level of Care Code Est Pt Level 4 (97291) Diagnoses Lipoma of anterior chest wall D17.1
[2025-08-09 13:02] VITALS: BP 134/73; PULSE 75; BMI 30.3
--- OUTSIDE RECORDS SUMMARY | 2025-08-09 15:46 | XMS_ITS | Clinical Summary ---
Author Organization [address] [place] [address] Address [address] [place] [address] Phone Care Team Providers Care Industrial Fabric Cutter Name Role Phone Mannie Murillo MD Primary Care Provider Social History Tobacco Use Types Packs/Day Years Used Date Smoking Tobacco: Never Assessed Sex and Gender Information Value Date Recorded Sex Assigned at Not on file Legal Sex Male 10:45 PM EST Gender Identity Not on file Sexual Orientation Not on file Plan of Treatment Health Maintenance Due Date Last Done Comments Colorectal Cancer Screening: Colonoscopy 1975 Hepatitis B Vaccines (1 of 3 - 19+ 3-dose series) 1994 Cholesterol Screening (Lipid Panel) 10/06/2022 HIV Screening 10/06/2022 Hepatitis C Screening 10/06/2022 Social Influencers of Health Screening 10/06/2022 Depression Screening 11/03/2024 DTaP,Tdap,and Td Vaccines (2 - Td or Tdap) 02/18/2025 02/18/2015 Pneumococcal Vaccine: 50+ Ye ars (1 of 1 - PCV) 2025 Zoster Vaccines (1 of 2) 2025 COVID-19 Vaccine (1 - 2023-2 5 season) 2025 Influenza Vaccine (#1) 2025 RSV Immunization Adult Patie nts (1 - 1-dose 75+ series) 2050 HIB [...] topic Insurance MEDICAID - [place] Care Teams Industrial Fabric Cutter Relationship Specialty Start Date End Date Mannie Murillo MD [address] [place] [address] [address] [place], [place] PCP - General Internal Medicine 03/17/25
--- OUTSIDE RECORDS SUMMARY | 2025-08-09 15:46 | XMS_ITS | Clinical Summary ---
Author Organization [employer] Address [address] [facility] [address] [place] [address] Care Team Providers Care Senior Specialist Name Role Phone Unavailable Primary Care Provider Unavailabl e Allergies No known active allergies Medications Sodium Fluoride 1.1 % creamIndication s:Dental caries [place] teeth for 2 minutes, morning and night. [...] Years (1 of 2 - PCV) 1994 Dental Oral Exam 03/14/2025 09/13/2024 Dental Prophylaxis 03/14/2025 09/13/2024 Zoster Vaccines (1 of 2) 2025 COVID-19 Vaccine (1 - 2023-2 5 season) 2025 Influenza Vaccine (#1) 2025 Dental X-Ray: [...] Most Recently Relevant to Health Maintenance Insurance [facility] MEDICAID STAND ADULT
== END 2025-08-09 13:34 | disposition home or self-care (01) ==
LOC: HO.HGS 12:54
PROVIDERS: PCP Internal Medicine; Visit Provider Surgery
DX: D17.1 Benign lipomatous neoplasm of skin and subcutaneous tissue of trunk (principal)
CPT/HCPCS: 99214

== ENCOUNTER → 2025-08-09 12:53 | Outpatient (BNVA) | payer OTHER, SELFPAY | PROVIDERS: PCP Internal Medicine; Visit Provider Surgery | DX: D17.1 Benign lipomatous neoplasm of skin and subcutaneous tissue of trunk (principal) | CPT/HCPCS: 99212 ==